=== PATIENT | male | born 1950 | race Caucasian/White ===

== ENCOUNTER 2023-07-14 15:13 | Outpatient (AMB) | payer BC, SELFPAY ==
[2023-07-14 15:25] VITALS: BP 122/60; PULSE 67; O2SAT 96; BMI 30.5
--- NOTE | 2023-07-14 15:25 | HO.NEPHOV ---
Vital Signs 07/14/23 15:25 Height 5 ft 6 in Weight 189 lb 4 oz BMI 30.5 BP 122/60 Blood Pressure Location Lt brachial Position Sitting Pulse 67 Pulse Source Pulse Oximeter Pulse Oximetry (%) 96 Oxygen Delivery Method Room Air Intake Visit Reasons: Continuing care from [facility]/ Confirmed Community Development Coordinator Required: No Accompanied by: Self / Same As Patient Allergies No Known Allergies Allergy (Verified 07/14/23 15:27) HPI Comments Details: I had the pleasure of seeing Porter in follow-up of his hypertension. He is an anxious personality who tends to have high blood pressure readings during office visits. 24 hour ambulatory blood pressure monitor in the past showed him to have suboptimally controlled blood pressure and was initiated on a beta phi. Ever since his blood pressure has been at goal. He has no history of uncontrolled thyroid disorders, hypercalcemia, sleep apnea or CKD. He has dyslipidemia and is on statins. He feels well. [facility] [place] Medical History (Updated 07/14/23 @ 15:53 by Satya Goldsmith MD) Hyperlipidemia Hypertension Surgical History (Updated 07/14/23 @ 15:28 by Lupe Lim MA) History of surgery on lower extremity Family History (Updated 07/14/23 @ 15:28 by Lupe Lim MA) Sister Kidney disease Social History (Updated 07/14/23 @ 15:28 by Lupe Lim MA) Alcohol intake: current Patient Tobacco Use Status: Never used Tobacco Physical Exam Vital Signs: Last Vital Signs Pulse 67 07/14/23 15:25 BP 122/60 07/14/23 15:25 Pulse Ox 96 07/14/23 15:25 Oxygen Delivery Method Room Air 07/14/23 15:25 BMI result Body Mass Index 30.5 Const General: comfortable and no acute distress Orientation/consciousness: patient oriented x3 HEENT Head: Yes normocephalic Mouth: Normal oral and palatal mucosa present Eyes EOM: EOMs intact bilaterally Neck Neck: Yes supple Resp Auscultation: clear to auscultation bilaterally Cardio Jugular venous distension: no JVD Rate: regular rate GI Palpation (GI): Soft to palpation Auscultation: normal bowel sounds General: Yes no CVA tenderness Back/Spine/Pelvis Back: no CVA tenderness Skin General skin exam: no rashes or lesions noted Neuro General: patient oriented x3 and moves all extremities Extrem General: Yes no pedal edema Results Reviewed Nephrology Results: No Data to Display Assessment & Plan Assessment & Plan (1) Hypertension: Code(s): I10 - Essential (primary) hypertension Category: Medical Qualifiers: Hypertension type: primary hypertension Qualified Code(s): I10 - Essential (primary) hypertension Plan Porter has been diagnosed with hypertension and had been initiated on beta phi. He has a white coat effect at baseline. Ever since the medication has been initiated his blood pressure is well controlled and is at goal. He does not take any nonsteroidal anti-inflammatories. He tries to have a low-sodium diet. He is not known to have any retinopathy, left ventricular hypertrophy, proteinuria or renal dysfunction. He continues to be active. I did not make any medication changes today. Follow-up blood work ordered. Answered all questions. Orders: Orders Creatinine 07/14/23 I10 - Essential (primary) hypertension Blood Urea Nitrogen 07/14/23 I10 - Essential (primary) hypertension Electrolytes 07/14/23 I10 - Essential (primary) hypertension Protein Creatinine Ratio, Ur 07/14/23 I10 - Essential (primary) hypertension Coding Level of Care Code Est Pt Level 4 (14655) Diagnoses Primary hypertension I10 Hypertension type: primary hypertension
== END 2023-07-14 16:04 | disposition home or self-care (01) ==
PROVIDERS: PCP Internal Medicine; Visit Provider Internal Medicine Nephrology
DX: I10 Essential (primary) hypertension (principal)
CPT/HCPCS: 99214

== ENCOUNTER → 2023-07-14 15:13 | Outpatient (BNVA) | payer BC, SELFPAY | PROVIDERS: PCP Internal Medicine; Visit Provider Internal Medicine Nephrology ==